=== PATIENT | female | born 1970 | race Caucasian/White ===

== ENCOUNTER 2016-09-08 17:08 | Emergency (ER) | payer SELFPAY ==
--- NOTE | 2016-09-08 17:23 | ED Physician Documentation ---
General Adult - HISTORIAN Historian: patient - HPI Stated Complaint: low back pain Chief Complaint: General Adult Onset: hours Timing: still present Severity: moderate Further Comments: yes (Pt is a 46 yo female who slipped on water and landed on her tailbone while working at [employer]. Pt c/o pain mostly in tailbone.) - ROS CONST: no problems EYES/ENT: none CVS/RESP: none GI/: none MS/SKIN/LYMPH: other (low back/tailbone pain.) - PAST HX Past History: none Surgeries/Procedures: hysterectomy Allergies/Adverse Reactions: Allergies Allergy/AdvReac Type Severity Reaction Status Date / Time Penicillins Allergy Verified 09/08/16 17:25 Latex, Natural Rubber AdvReac Rash Verified 09/08/16 17:25 Home Medications: Ambulatory Orders Medication Instructions Recorded NK [NK] 07/10/16 - SOCIAL HX Smoking History: cigarettes - FAMILY HX Family History: No - VITAL SIGNS Vital Signs: Vital Signs Temp Pulse Resp BP Pulse Ox 111/50 07/10/16 19:02 - REVIEWED ASSESSMENTS Nursing Assessment Reviewed: Yes Vitals Reviewed: Yes Progress - Progress Progress: x-rays L-spine, coccyx: wnl Rx Percocet (5/325) 1-2 po q 4-6h prn #15. General Adult Physical Exam - PHYSICAL EXAM GENERAL APPEARANCE: moderate distress EENT: eye inspection normal NECK: normal inspection, supple RESPIRATORY: no resp distress, chest non-tender CVS: reg rate & rhythm, heart sounds normal BACK: normal inspection, other (tenderness low back) SKIN: warm/dry, normal color EXTREMITIES: non-tender, normal range of motion, no edema NEURO: oriented X3, motor nml, sensation nml, other (DTR's wnl) Discharge Clincal Impression: fall, low back pain Referrals: Primary Doctor,No [Primary Care Provider] - Home Medications: Ambulatory Orders NK [NK] 07/10/16 Condition: Stable Disposition: 01 HOME, SELF-CARE Decision to Admit: NO Decision Time: 18:23
[2016-09-08 18:29] VITALS: BP 135/69
--- NOTE | 2016-09-09 02:03 | Diagnostic Imaging Report ---
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 ~ Electronically signed on Sep 08, 2016 6:14:10 PM EARLY [employer] TEACHER by: Greg FERRELL
--- NOTE | 2016-09-09 02:04 | Diagnostic Imaging Report ---
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 Physician: STACY IBANEZ ~ ~ ~ ~ Sacrum and coccyx HISTORY: ~ Pain after fall FINDINGS: ~ The sacrum and coccyx are unremarkable without fracture, dislocation, or focal bone lesion. ~ Electronically signed on Sep 08, 2016 6:15:03 PM CHIEF TELEPHONE OPERATOR by: Greg FERRELL
== END 2016-09-08 18:28 | disposition home or self-care (01) ==
LOC: ED 17:08
DX: M54.5 Low back pain (principal); W19.XXXA Unspecified fall, initial encounter; Y93.9 Activity, unspecified; Y99.9 Unspecified external cause status
CPT/HCPCS: 72100; 72220; 99283

== ENCOUNTER 2018-01-26 15:59 | Emergency (ER) | payer SELFPAY ==
--- NOTE | 2018-01-26 16:08 | ED Physician Documentation ---
General Adult - HISTORIAN Historian: patient - HPI Stated Complaint: L ankle injury Chief Complaint: General Adult Onset: days ago (2) Timing: still present Severity: moderate Further Comments: yes (Pt is a 47 yo female who stepped in a hole 2 days ago and injured her L ankle.) - ROS CONST: no problems EYES/ENT: none CVS/RESP: none GI/: none MS/SKIN/LYMPH: other (L ankle injury) - PAST HX Past History: none Allergies/Adverse Reactions: Allergies Allergy/AdvReac Type Severity Reaction Status Date / Time Penicillins Allergy Verified 01/26/18 16:12 Latex, Natural Rubber AdvReac Rash Verified 01/26/18 16:12 Home Medications: Ambulatory Orders Medication Instructions Recorded NK [NK] 07/10/16 - SOCIAL HX Smoking History: cigarettes - FAMILY HX Family History: No - VITAL SIGNS Vital Signs: Vital Signs Temp Pulse Resp BP Pulse Ox 127/62 09/08/16 18:28 - REVIEWED ASSESSMENTS Nursing Assessment Reviewed: Yes Vitals Reviewed: Yes Progress - Progress Progress: X-ray L ankle: There is soft tissue swelling over the lateral malleolus. There is no fracture, dislocation or abnormal bone destruction. Plantar calcaneal spur is present. Impression: No acute osseous abnormality. Air splint Ibuprofen 200 mg. Take 2 or 3 tablets every 8 hours with food. ED Results Lab/Radiology - Orders Orders: ED Orders Category Date Time Status ANKLE 3 VIEWS OR MORE [RAD] Stat Exams 01/26/18 Ordered General Adult Physical Exam - PHYSICAL EXAM GENERAL APPEARANCE: mild distress NECK: normal inspection, supple RESPIRATORY: no resp distress, chest non-tender, breath sounds normal CVS: reg rate & rhythm, heart sounds normal BACK: normal inspection SKIN: warm/dry, normal color EXTREMITIES: other (L ankle tenderness, min swelling) NEURO: oriented X3, motor nml, sensation nml Discharge Clincal Impression: L ankle sprain Referrals: Primary Doctor,No [Primary Care Provider] - Condition: Good Disposition: 01 HOME, SELF-CARE Decision to Admit: NO Decision Time: 16:51
[2018-01-26 16:12] VITALS: BP 113/68
--- NOTE | 2018-01-26 17:17 | Diagnostic Imaging Report ---
STACY IBANEZ [id number] [facility], [facility] [address] [address] Report Submission Date: Jan 26, 2018 4:42:33 PM CDT Patient Study Name: ALEXANDR NATARAJAN Date: Jan 26, 2018 4:15:44 PM CDT Modality Type: DX Gender: F Description: LOWER EXTREMITY : 68 Institution: Physician: STACY IBANEZ Left ankle, 3 views History: Injury, pain Findings: There is soft tissue swelling over the lateral malleolus. There is no fracture, dislocation or abnormal bone destruction. Plantar calcaneal spur is present. Impression: No acute osseous abnormality. Electronically signed on Jan 26, 2018 4:42:33 PM CDT by: Kings FERRELL
== END 2018-01-26 16:54 | disposition home or self-care (01) ==
LOC: ED 15:59
DX: S93.402A Sprain of unspecified ligament of left ankle, initial encounter (principal); X58.XXXA Exposure to other specified factors, initial encounter; Y92.9 Unspecified place or not applicable; Y93.9 Activity, unspecified; Y99.9 Unspecified external cause status
CPT/HCPCS: 73610; 99283

== ENCOUNTER 2019-03-26 11:16 | Emergency (ER) | payer BC ==
--- NOTE | 2019-03-26 11:21 | ED Physician Documentation ---
Upper Respiratory Symptoms - HISTORIAN Historian: patient - HPI Stated Complaint: cough congestion and fever x 7 days Chief Complaint: Cough/ Upper Respiratory Onset: days ago (7) Duration: constant Context: denies: recent foreign travel, insect bite(s), tick(s), recent chemotherapy, multiple patients Severity: moderate Associated Symptoms: fever, chills, runny nose, sinus pain, sinus drainage, headache. 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 She has had a cough and what she felt was a cold for over 7 days. She had fever two nights ago. She has taken OTC meds with no relief. She does cough. Denies any productive cough. She has no rash. No sick contacts she is aware of although work with the public. Denies any shortness of air or chest pain.) - ROS CONST/EYES: denies: weakness, eye redness, eye itching CVS/RESP: none LYMPH: denies: leg swelling, rash GI/: none NEURO/PSYCH: denies: fainting, dizziness, confusion, anxiety, depression - PAST HX Lung Disease: none PE Risk Factors: none Surgeries/Procedures: none Immunizations: UTD Allergies/Adverse Reactions: Allergies Allergy/AdvReac Type Severity Reaction Status Date / Time Penicillins Allergy Verified 03/26/19 11:29 Latex, Natural Rubber AdvReac Rash Verified 03/26/19 11:29 Home Medications: Ambulatory Orders Medication Instructions Recorded NK 07/10/16 - SOCIAL HX Smoking History: cigarettes Alcohol Use: none Drug Use: none - FAMILY HX Family History: none - VITAL SIGNS Vital Signs: Vital Signs Temp Pulse Resp BP Pulse Ox 96.7 F L 88 21 154/69 99 03/26/19 11:20 03/26/19 11:20 03/26/19 11:20 03/26/19 11:20 03/26/19 11:20 - REVIEWED ASSESSMENTS Nursing Assessment Reviewed: Yes Vitals Reviewed: Yes Progress - Progress Progress: 1210: slight improvement post neb DG 1213: Discussed plan and discharge DG ED Results Lab/Radiology - Orders Orders: ED Orders Category Date Time Status Ipratropium/Albuterol Sulfate [Duoneb] Med 03/26/19 11:58 Discontinued 3 ml NEB NOW ONE Upper Respiratory Symptoms - EXAM General Appearance: no acute distress, alert EENT: eyes nml inspection, pain over sinuses, frontal, TM dullness (R), TM dullness (L), loss of TM landmarks (R), loss of TM landmarks (L) Respiratory: no resp. distress, breath sounds nml, wheezes (RUL ) Abdomen: non-tender CVS: reg rate & rhythm, heart sounds normal, equal pulses Skin: color nml, no rash, warm,dry Extremities: non-tender, normal range of motion, no evidence of injury, no edema Neuro/Psych: oriented x3 Discharge Clincal Impression: Sinusitis Qualifiers: Sinusitis location: frontal Chronicity: acute Recurrence: non-recurrent Qualified Code(s): J01.10 - Acute frontal sinusitis, unspecified Referrals: Primary Doctor,No [Primary Care Provider] - 2 Days Comments: 1. Augmentin 875/125 mg take 1 by mouth twice daily x 10 days 2. Medrol dose pack as directed 3. ProAir 90mcg Take 2 puffs every 4 hours as needed for cough 4. Increase fluids 5. DO NOT SMOKE 6. Return to ER for any increasing concerns Condition: Stable Disposition: 01 HOME, SELF-CARE Decision to Admit: NO Date of Decison to Admit: 03/26/19 Decision Time: 12:17
[2019-03-26] MEDS: IPRATROPIUM/ALBUTEROL SULFATE 3 ML AMPUL.NEB NEB ONE (12:05)
[2019-03-26 12:37] VITALS: BP 135/69
== END 2019-03-26 11:20 | disposition home or self-care (01) ==
LOC: ED 11:16
DX: J01.10 Acute frontal sinusitis, unspecified (principal)
CPT/HCPCS: 94640; 99283; 99284